=== PATIENT | female | born 1950 | race Caucasian/White ===

== ENCOUNTER 2016-06-12 16:57 | Emergency (ER) | payer MEDICARE, BC ==
[~2016-06-12 16:57] MED LIST: ATEN-100 PO; DIAZ5 PO; LOSA25TA31 PO; LYRI75CA PO; META800 PO; NEXI40CA PO; PERC10TA27 PO; PRIS50TA PO; SYNT88TA PO; ZOLP10TA3 PO; stelara
[2016-06-12 17:08] VITALS: BP 144/98; PULSE 68; RESP 20; TEMP 97.8; O2SAT 96
[2016-06-12] MEDS ORDERED: KETO2CRE TOPICAL (17:43)
[2016-06-12] MEDS ORDERED: MONT10TA4 PO (17:43)
[2016-06-12] MEDS ORDERED: ASPI325T PO (17:43)
[2016-06-12] MEDS ORDERED: OXYC1TAB35 PO (17:43)
[2016-06-12] MEDS ORDERED: LOSA50TA PO (17:43)
[2016-06-12] MEDS ORDERED: PRIS100T PO (17:43)
[2016-06-12] MEDS ORDERED: DICY10CA12 PO (17:43)
[2016-06-12] MEDS ORDERED: ATEN50TA PO (17:43)
[2016-06-12] MEDS ORDERED: ZOLP5TAB3 PO (17:43)
[2016-06-12] MEDS ORDERED: LIDO4PAD (17:43)
[2016-06-12] MEDS ORDERED: ALBU6.7H INH (17:43)
[2016-06-12] MEDS ORDERED: LEVO88TA2 PO (17:43)
[2016-06-12] MEDS ORDERED: LYRI75CA PO (17:43)
[2016-06-12] MEDS ORDERED: HUMI40KI SQ (17:43)
[2016-06-12] MEDS ORDERED: FLUT1SPR5 EACH NARE (17:43)
[2016-06-12] MEDS ORDERED: NEXI40CA PO (17:43)
[2016-06-12] MEDS ORDERED: RIZA5TAB (17:43)
[2016-06-12] MEDS ORDERED: DIAZ5TAB PO (17:43)
--- NOTE | 2016-06-12 18:01 | PD ---
HPI Chief Complaint: Complaint Time Seen by Provider: 17:31 Travel History International Travel<30 days: No Contact w/Intl Traveler<30days: No Traveled to known affect area: No History of Present Illness HPI This patient complains of dysuria. She has a long history of bladder problems. Denies fever. She has chronic pain syndrome. Symptoms severity is mild PFSH Past Medical History Hx Anticoagulant Therapy: Yes (ASA) Arthritis: Yes (psoriatic arthitis) Asthma: Yes Anxiety: Yes Depression: Yes Cardiovascular Problems: Yes (MVP, TACHYCARDIA) Diminished Hearing: No Fibromyalgia: Yes Gastrointestinal Disorders: Yes (PELVIC FLOOR DISFUNCTION, IBS, CHRONIC CONSTIPATION) Headaches: Yes Immune Disorder: Yes (quiana-danlos syndrome) Musculoskeletal: Yes (WHIP LASH INJURY TO NECK) Neurologic: Yes (EPSTIEN ANGEL, BENIGN ESSENTIAL TREMMOR) Immunizations Current: Yes Migraines: Yes Thyroid Disease: Yes Menopausal: Yes : 1 Para: 1 Past Surgical History Appendectomy: Yes Cholecystectomy: Yes Neurologic Surgery: Yes (spinal implant on right for right hip) Other Surgery: Yes (left breast tumor removal, left foot surgery) Social History Alcohol Use: No Tobacco Use: No Substance Use: No Allergies-Medications (Allergen,Severity, Reaction): Uncoded Allergies: anesthesia (Allergy, Intermediate, migraines/ vomiting, 09/07/13) Reported Meds & Prescriptions Reported Meds & Active Scripts Active Levaquin (Levofloxacin) 500 Mg Tab 500 Mg PO DAILY Reported Zolpidem (Zolpidem Tartrate) 5 Mg Tab 5 Mg PO HS PRN Rizatriptan (Rizatriptan Benzoate) 5 Mg Tab Pristiq 24 HR (Desvenlafaxine ER 24 HR) 100 Mg Tab 100 Mg PO DAILY Lyrica (Pregabalin) 75 Mg Cap 75 Mg PO DAILY Oxycodone-Acetaminophen 7.5-325 mg Tab 1 Tab PO Q4H PRN Nexium (Esomeprazole DR) 40 Mg Capdr 40 Mg PO DAILY Montelukast (Montelukast Sodium) 10 Mg Tab 10 Mg PO HS Losartan (Losartan Potassium) 50 Mg Tab 50 Mg PO DAILY Aspercreme Lidocaine Max Patch (Lidocaine) 4% Patch Levothyroxine (Levothyroxine Sodium) 88 Mcg Tab 88 Mcg PO DAILY Ketoconazole Topical 2% Cream 1 Applic TOPICAL DAILY Humira 2-Pack Inj (Adalimumab 2-Pack Inj) 40 Mg/0.8 Ml Syr 40 Mg SQ Q14D Flonase Allergy Relief Nasal [place] (Fluticasone Nasal [place]) 50 Mcg/Act [place] 50 Mcg EACH NARE DAILY Dicyclomine (Dicyclomine HCl) 10 Mg Cap 10 Mg PO QID Diazepam 5 Mg Tab 5 Mg PO BID PRN Atenolol 50 Mg Tab 75 Mg PO DAILY Aspirin 325 Mg Tab 325 Mg PO DAILY Proventil Hfa 6.7 GM Inh (Albuterol Sulfate) 90 Mcg/Act Aer 1 Puff INH Q4H PRN Review of Systems HENT: No: Headaches Cardiovascular: No: Chest Pain or Discomfort Physical Exam Narrative GASTROINTESTINAL: Abdomen soft, non-tender, nondistended. Positive bowel sounds. No hepato-splenomegaly, or palpable masses. No guarding. SKIN: Inspection shows no rash or ulcers. Palpation shows no induration or nodules. Psych: Normal mood and affect. Normal insight and judgment. Data Data Last Documented VS Vital Signs Date Time Temp Pulse Resp B/P Pulse Ox O2 Delivery O2 Flow Rate FiO2 06/12/16 17:08 97.8 68 20 144/98 96 Orders Urinalysis - C+S If Indicated (06/12/16 17:59) Urine Culture (06/12/16 18:07) Labs Laboratory Tests Test 06/12/16 18:07 Urine Collection Type CLEAN CATCH Urine Color YELLOW Urine Turbidity CLOUDY Urine pH 5.5 Urine Specific [place] 1.022 Urine Protein NEG mg/dL Urine Glucose (UA) NEG mg/dL Urine Ketones NEG mg/dL Urine Occult Blood TRACE Urine Nitrite POS Urine Bilirubin NEG Urine Leukocyte Esterase MOD Urine RBC 0-3 /hpf Urine WBC INNUM /hpf Urine WBC Clumps FEW Urine Squamous Epithelial 0-3 /hpf Cells Urine Transitional Epithelial 0-2 /hpf Cells Urine Bacteria MANY /hpf Microscopic Urinalysis Comment CULTURE INDICATED MDM Medical Decision Making Medical Screen Exam Complete: Yes Emergency Medical Condition: Yes Medical Record Reviewed: Yes Differential Diagnosis Cystitis, UTI, pyelonephritis Narrative Course I have reviewed the patient's electronic medical record. Urinalysis shows pyuria and bacteriuria. 5 days of levaquin prescribed. Diagnosis Primary Impression: Acute cystitis Qualified Code: N30.00 - Acute cystitis without hematuria Additional Instructions: The patient was advised to follow up with their physician and return if they worsen. Med/Other Pt SpecificInfo: Prescription(s) given Scripts Levofloxacin (Levaquin)500 Mg [id number] Mg PO DAILY #5 TAB Ref 0 Prov:Jose Felder MD 06/12/16 Disposition: 01 DISCHARGE HOME Condition: Stable Jose Felder MD Jun 12, 2016 18:01
[2016-06-12 18:16] LABS: BLOOD, URINE TRACE (NEG); GLUCOSE,URINE NEG (NEG); KETONE, URINE NEG (NEG); PH, URINE 5.5 (5.0-8.5)
[2016-06-12 18:20] LABS: NITRITE,URINE POS (NEG)
[2016-06-12 18:33] LABS: METHOD OF COLLECTION CLEAN CATCH; RBC, URINE 0-3 /hpf (0-3); URINE COLOR YELLOW (YELLW/STRAW); WBC, URINE INNUM /hpf (0-5)
[2016-06-12 18:34] LABS: BACTERIA, URINE MANY /hpf; COMMENT (UR) CULTURE INDICATED; CULTURE IF INDICATED CULTURE INDICATED; SQUAMOUS EPITHELIAL CELL URINE 0-3 /hpf (0-5); TRANSITIONAL EPI CELLS, URINE 0-2 /hpf
[2016-06-12] MEDS ORDERED: LEVA500T PO (18:46)
== END 2016-06-12 19:13 | disposition home or self-care (01) ==
LOC: PHED 16:57
DX: N30.00 Acute cystitis without hematuria (principal); B96.20 Unspecified Escherichia coli [E. coli] as the cause of diseases classified elsewhere
CPT/HCPCS: 81001; 87077; 87086; 87186; 99283